=== PATIENT | male | born 1980 | race Caucasian/White ===

== ENCOUNTER 2016-08-29 15:20 | Emergency (ER) | payer OTHER ==
[~2016-08-29] VITALS: Ht 170.2 cm; Wt 88.6 kg
[2016-08-29 15:29] VITALS: BP 150/98; RESP 15; O2SAT 96
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
[2016-08-29] MEDS ORDERED: Amoxicillin-Clav 875-125 mg Tablet PO ONE (18:10)
[2016-08-29 18:19] VITALS: BP 147/96; PULSE 89; RESP 18; O2SAT 97
[2016-08-29] MEDS ORDERED: AMOX-366 PO (18:32)
[2016-08-29] MEDS ORDERED: BUDE8.43 NS (18:32)
[2016-08-29 18:36] VITALS: BP 147/96; PULSE 89; RESP 18; O2SAT 97
== END 2016-08-29 18:37 | disposition home or self-care (01) ==
LOC: SED 15:20
DX: J01.90 Acute sinusitis, unspecified (principal); V43.52XD Car driver injured in collision with other type car in traffic accident, subsequent encounter; Y93.89 Activity, other specified; Y99.8 Other external cause status; Y92.410 Unspecified street and highway as the place of occurrence of the external cause; Z87.820 Personal history of traumatic brain injury